=== PATIENT | male | born 1960 | race Caucasian/White ===

== ENCOUNTER 2024-02-08 20:18 | Emergency (ER) | payer BC ==
[2024-02-08] MEDS: HYDROmorphone 2 MG/ML SDV IM ONE (20:38)
[2024-02-08 21:47] VITALS: BP 125/73; PULSE 97
== END 2024-02-08 22:10 ==
LOC: FB.ED 20:18
DX: G82.22 Paraplegia, incomplete (principal); Z85.048 Personal history of other malignant neoplasm of rectum, rectosigmoid junction, and anus
CPT/HCPCS: 96372; 99285; J1171